=== PATIENT | male | born 2000 | race Caucasian/White ===

== ENCOUNTER 2024-01-07 15:16 | Outpatient (AMB) | payer OTHER, SELFPAY ==
--- NOTE | 2024-01-07 15:20 | MHC.OFFVIS ---
Vital Signs 01/07/24 15:21 Height 5 ft 9 in Weight 231 lb 4 oz BMI 34.1 BP 110/70 Blood Pressure Location Rt brachial Position Sitting Pulse 69 Pulse Source Pulse Oximeter Pulse Oximetry (%) 97 Oxygen Delivery Method Room Air Intake Visit Reasons: hx of asthma Allergies No Known Allergies Allergy (Verified 01/07/24 15:23) HPI HPI hx of asthma: Details: Jeff is a pleasant 23 year old male, never smoker, with underlying asthma since childhood. He was referred from work connections for pulmonary evaluation as he is planning to enter the [employer]. He reports occasional dyspnea with exertion and wheezing which is triggered by allergies. He was previously receiving allergen immunotherapy years ago and currently uses daily zyrtec. He was using symbicort in the past in the past with good effect, however had discontinued. He is currently using albuterol PRN. He reports asthma since childhood, never requiring intubations. He does not recall any hospitalizations or need for steroids in the past. He reports seasonal and perrenial allergies as well as allergies to dog, which he has two. He denies any occupational exposures. [facility] Social History (Updated 01/07/24 @ 15:24 by Brenda Calhoun [facility]) Patient Tobacco Use Status: Never used Tobacco Tobacco use type: Cigarette e-Cigarette/Vaping Use: Never Used Review of Systems Const Denies chills, Denies excessive sweating, Denies fever(s), Denies headache(s) and Denies night sweats Eyes Denies dry eyes, Denies irritation and Denies itchy eyes ENT Reports Normal hearing present, Denies headache(s), Denies nasal congestion, Denies nasal discharge, Denies post nasal drip and Denies sore throat Card Denies chest pain, Denies chest pain at rest, Denies chest pain with activity, Denies claudication, Denies leg edema, Denies orthopnea and Denies paroxysmal nocturnal dyspnea Resp Denies chest congestion, Denies cough, Denies excessive phlegm production, Denies pain on inspiration, Denies pain with cough and Denies stridor Musc Denies myalgias Neuro Reports Normal hearing present and Denies headache(s) Endo Denies excessive sweating Kam/Lymph Denies lymphadenopathy Aller/Immun Denies itchy eyes and Denies seasonal rhinorrhea Physical Exam Vital Signs: Last Vital Signs Pulse 69 01/07/24 15:21 BP 110/70 01/07/24 15:21 Pulse Ox 97 01/07/24 15:21 Oxygen Delivery Method Room Air 01/07/24 15:21 BMI result Body Mass Index 34.1 Const General: cooperative, healthy appearing, comfortable, no acute distress, well developed and alert Orientation/consciousness: patient oriented x3 Limitations: no limitations HEENT Head: Yes normal to inspection, Yes normocephalic and Yes atraumatic Ears: hearing grossly normal bilaterally and external ears normal Eyes General: appearance normal, both eyes and all related structures Eyelids: Yes eyelids normal Sclerae: sclerae normal EOM: EOMs intact bilaterally Neck Neck: Yes normal visual inspection and Yes no lymphadenopathy Lymphatic: no lymphadenopathy noted Chest Chest palpation & inspection: normal inspection of the chest Resp Effort & Inspection: normal respiratory effort, able to speak in complete sentences, no audible wheezes, no cough, no stridor, not tachypneic, no tripod positioning and no use of accessory muscles Auscultation: clear to auscultation bilaterally Cardio Jugular venous distension: no JVD Rate: regular rate Rhythm: regular rhythm Skin Other: warm, dry General skin exam: no rashes or lesions noted Neuro General: patient oriented x3 Cranial nerves: Yes Normal hearing present Cognition (Neuro): normal cognition Gait exam (Neuro): Normal gait present Extrem General: Yes normal to inspection, Yes capillary refill normal, Yes no clubbing, cyanosis or edema and Yes no pedal edema Psych Appearance: grossly normal and well kempt Speech and movement: Normal speech and movement present and Clear speech present Affect: normal affect Attitude: cooperative Thought process: Normal thought process present Thought content: Normal thought content present Insight: Good insight present (Psych) Judgement: Good judgement present (Psych) Results AMB Urinalysis Automated WC UR Glucose Negative Last Edit by Su Vanegas RN on 01/07/24 10:57 UR Ketone Negative Last Edit by Su Vanegas RN on 01/07/24 10:57 UR Specific [place] 1.025 Last Edit by Su Vanegas RN on 01/07/24 10:57 UR Blood Negative Last Edit by Su Vanegas RN on 01/07/24 10:57 UR Ph 6.5 Last Edit by Su Vanegas RN on 01/07/24 10:57 UR Protein Negative Last Edit by Su Vanegas RN on 01/07/24 10:57 UR Nitrite Negative Last Edit by Su Vanegas RN on 01/07/24 10:57 UR Leukocytes Negative Last Edit by Su Vanegas RN on 01/07/24 10:57 Assessment & Plan Assessment & Plan (1) Asthma: Code(s): J45.909 - Unspecified asthma, uncomplicated Category: Medical (2) Environmental allergies: Code(s): Z91.09 - Other allergy status, other than to drugs and biological substances Category: Medical Plan Since patient with intermittent symptoms triggered by seasonal allergies, will restart symbicort. Advised to continue use of xyrtec. He defers allergy testing at this time. Will further evaluate with PFT and may need methacholine challenge as a part of his evaluation required by the [employer]. An order was placed for CXR, which he reportedly obtained earlier today (not in system), will review once resulted. All questions were answered and patient is in agreement of plan. Will follow up to review response to inhaler and results. Orders: Orders PFT pulmonary function test Today J45.909 - Unspecified asthma, uncomplicated Medications: New budesonide-formoterol 80-4.5 mcg/actuation (Symbicort) 2 puffs inhalation Q12H 10.2 grams 6RF Coding Level of Care Code New Pt Level 3 (42646) Diagnoses Asthma J45.909 Environmental allergies Z91.09
[2024-01-07 15:21] VITALS: BP 110/70; PULSE 69; O2SAT 97; BMI 34.1
== END 2024-01-07 16:02 | disposition home or self-care (01) ==
PROVIDERS: PCP Internal Medicine; Visit Provider Nurse Practitioner Family
DX: J45.909 Unspecified asthma, uncomplicated (principal); Z91.09 Other allergy status, other than to drugs and biological substances
CPT/HCPCS: 99203

== ENCOUNTER → 2024-01-07 15:16 | Outpatient (BNVA) | payer OTHER, SELFPAY | PROVIDERS: PCP Internal Medicine; Visit Provider Nurse Practitioner Family ==